=== PATIENT | male | born 1950 | race African-American/Black ===

== ENCOUNTER 2016-10-15 17:59 | Observation (INO) | payer OTHER ==
[~2016-10-15] VITALS: Ht 157.5 cm; Wt 97.0 kg
[~2016-10-15 17:59] MED LIST: ALBU1AER INH; AMLO5TAB22 PO; CHLO.12%30 SSP; CLOP75 PO; EZET10 PO; GLIP5 PO; IBUP800T23 PO; LISI40TA PO; METH750T2 PO; RANI150T PO; ZOLP10TA3 PO
[2016-10-15 18:00] VITALS: BP 183/92; PULSE 98; RESP 20; TEMP 98.5; O2SAT 98
--- NOTE | 2016-10-15 18:16 | PD ---
Physical Exam Time Seen by Provider: 18:12 Narrative 65yo M c/o abd pain x 1 week. Reports constipation. Denies N, V. Denies fever. Reports abdominal swelling and BLE edema. Type 2 Diabetic on metformin. Hx of MS. Patient seen in triage. Awaiting bed placement. VS reviewed. Data Data Last Documented VS Vital Signs Date Time Temp Pulse Resp B/P Pulse Ox O2 Delivery O2 Flow Rate FiO2 10/15/16 18:00 98.5 98 20 183/92 98 MDM Supervised Visit with LJ: Jocelyn Rojo October 15, 2016 18:16
[2016-10-15 19:22] LABS: AUTOMATED NEUTROPHIL # 5.6 TH/MM3 (1.8-7.7); BASOPHIL # 0.1 TH/MM3 (0-0.2); BASOPHIL % 0.6 % (0.0-2.0); EOSINOPHIL # 0.2 TH/MM3 (0-0.4); EOSINOPHIL % 1.9 % (0.0-4.0); HEMATOCRIT 42.9 % (39.0-51.0); HEMO FLAGS DIFF FINAL; LYMPH % 26.1 % (9.0-44.0); LYMPHOCYTE # 2.4 TH/MM3 (1.0-4.8); MEAN CELL VOLUME 90.5 FL (80.0-100.0); MEAN CORPUSCULAR HEMOGLOBIN 27.9 PG (27.0-34.0); MEAN CORPUSCULAR HGB CONC 30.9 % (32.0-36.0); MONO % 10.1 % (0.0-8.0); NEUT % 61.3 % (16.0-70.0); PLATELET COUNT 161 TH/MM3 (150-450); RED BLOOD COUNT 4.75 MIL/MM3 (4.50-5.90); RED CELL DISTRIBUTION WIDTH 14.5 % (11.6-17.2); WHITE BLOOD COUNT 9.1 TH/MM3 (4.0-11.0)
[2016-10-15 19:35] LABS: BLOOD, URINE TRACE (NEG); GLUCOSE,URINE NEG (NEG); HYALINE CAST, URINE 17 /lpf (RARE); KETONE, URINE NEG (NEG); MUCUS URINE FEW /lpf (OCC); NITRITE,URINE NEG (NEG); PH, URINE 5.5 (5.0-8.5); URINE COLOR YELLOW (YELLW/STRAW)
[2016-10-15 19:38] LABS: COMMENT (UR) CULT NOT INDICATED; CULTURE IF INDICATED CULT NOT INDICATED
[2016-10-15 19:44] LABS: ANION GAP 6 MEQ/L (5-15); AST (GOT) 45 U/L (15-37); BICARBONATE 33.2 MEQ/L (21.0-32.0); BLOOD UREA NITROGEN 17 MG/DL (7-18); CHLORIDE 103 MEQ/L (98-107); GLOMERULAR FILTRATION RATE 62 ML/MIN (>89); POTASSIUM 3.9 MEQ/L (3.5-5.1); SODIUM (NA) 142 MEQ/L (136-145)
[2016-10-15 19:47] LABS: ALKALINE PHOSPHATASE 53 U/L (45-117); ALT (GPT) 91 U/L (12-78); TOTAL BILIRUBIN ADULT 1.4 MG/DL (0.2-1.0)
--- NOTE | 2016-10-15 23:45 | PD ---
HPI Chief Complaint: Abdominal Pain Time Seen by Provider: 23:44 Travel History International Travel<30 days: No Contact w/Intl Traveler<30days: No Traveled to known affect area: No History of Present Illness HPI Patient 65-year-old male presents emergency department for evaluation of leg swelling abdominal distention and decreased bowel output. Patient states he has a history of myocardial infarction in the past but has never been diagnosed as CHF. Patient states that he has been afraid to eat anything since she's been having some mild abdominal cramping. Denies any fever denies any blood in the stool. Denies any leg pain. He does also endorse mild shortness of breath on review of systems. Denies any chest pain. Symptoms are moderate gradually worsening over the past month. PFSH Past Medical History Asthma: Yes Autoimmune Disease: No Heart Rhythm Problems: No Cancer: No Cardiovascular Problems: Yes (NE) High Cholesterol: No Chest Pain: No COPD: Yes Cerebrovascular Accident: Yes Diabetes: Yes Patient Takes Glucophage: Yes Diminished Hearing: No Endocrine: Yes Genitourinary: No Hypertension: Yes Immune Disorder: No Musculoskeletal: No Neurologic: Yes Psychiatric: No Reproductive: No Respiratory: Yes Migraines: No Myocardial Infarction: Yes Seizures: No Sickle Cell Disease: No Sleep Apnea: No Ulcer: Yes Past Surgical History Abdominal Surgery: Yes (HERNIA x2) Cardiac Surgery: No Ear Surgery: No Endocrine Surgery: No Eye Surgery: No Genitourinary Surgery: No Gynecologic Surgery: No Oral Surgery: No Thoracic Surgery: No Other Surgery: Yes (HERNIA REPAIR X 2) Social History Alcohol Use: No Tobacco Use: No Substance Use: No Allergies-Medications (Allergen,Severity, Reaction): Coded Allergies: Contrast Media (Verified Allergy, Severe, Anaphylaxis, 10/15/16) Iodine (Verified Allergy, Severe, RASH, 10/15/16) Shellfish (Unverified Allergy, Severe, Anaphylaxis, 10/15/16) *MDRO Multi-Drug Resistant Organism (Unverified Adverse Reaction, Unknown , 10/15/16) MRSA (facial wound) - 04/2014 Reported Meds & Prescriptions Reported Meds & Active Scripts Active Reported Ambien (Zolpidem Tartrate) 10 Mg Tab 10 Mg PO HS PRN Ranitidine (Ranitidine HCl) 150 Mg Cap 150 Mg PO BID Methocarbamol 750 Mg Tab 1,500 Mg PO TID Amlodipine (Amlodipine Besylate) 5 Mg Tab 5 Mg PO DAILY Proair Hfa 8.5 GM Inh (Albuterol Sulfate) 90 Mcg/Act Aer 2 Puff INH BID PRN 108 mcg/actuation Review of Systems Except as stated in HPI: all other systems reviewed are Neg Physical Exam Narrative GENERAL: Developed well-nourished, minimally tachypneic.] SKIN: Focused skin assessment warm/dry. HEAD: Atraumatic. Normocephalic. EYES: Pupils equal and round. scleral icterus. No injection or drainage. ENT: No nasal bleeding or discharge. Mucous membranes pink and moist. NECK: Trachea midline. No JVD. CARDIOVASCULAR: Regular rate and rhythm. No murmur appreciated. 2+ bilaterally equal pulses in all 4 tremors. RESPIRATORY: No accessory muscle use. Clear to auscultation. Breath sounds equal bilaterally. GASTROINTESTINAL: Abdomen soft, non-tender, nondistended. Hepatic and splenic margins not palpable. MUSCULOSKELETAL: No obvious deformities. No clubbing. No cyanosis. 2+ bilateral pitting edema from the distal femur distally.. NEUROLOGICAL: Awake and alert. No obvious cranial nerve deficits. Motor grossly within normal limits. Normal speech. PSYCHIATRIC: Appropriate mood and affect; insight and judgment normal. Data Data Last Documented VS Vital Signs Date Time Temp Pulse Resp B/P Pulse Ox O2 Delivery O2 Flow Rate FiO2 10/15/16 18:00 98.5 98 20 183/92 98 Orders Complete Blood Count With Diff (10/15/16 18:15) Comprehensive Metabolic Panel (10/15/16 18:15) Urinalysis - C+S If Indicated (10/15/16 18:15) Iv Access Insert/Monitor (10/15/16 18:15) Oxygen Administration (10/15/16 18:15) Oximetry (10/15/16 18:15) Lipase (10/15/16 18:15) Chest, Single Ap (10/15/16 ) Ct Abd/Pel W/O Iv Contrast (10/15/16 ) Electrocardiogram (10/15/16 ) Furosemide Inj (Lasix Inj) (10/16/16 01:45) Troponin I (10/16/16 02:21) Admit Order (Ed Use Only) (10/16/16 ) B-Type Natriuretic Peptide (10/16/16 02:23) Creatine Kinase (Cpk) (10/15/16 19:00) Troponin I (10/15/16 19:00) Creatine Kinase (Cpk) (10/16/16 02:30) Labs Laboratory Tests Test 10/15/16 19:00 White Blood Count 9.1 TH/MM3 Red Blood Count 4.75 MIL/MM3 Hemoglobin 13.3 GM/DL Hematocrit 42.9 % Mean Corpuscular Volume 90.5 FL Mean Corpuscular Hemoglobin 27.9 PG Mean Corpuscular Hemoglobin 30.9 % Concent Red Cell Distribution Width 14.5 % Platelet Count 161 TH/MM3 Mean Platelet Volume 10.1 FL Neutrophils (%) (Auto) 61.3 % Lymphocytes (%) (Auto) 26.1 % Monocytes (%) (Auto) 10.1 % Eosinophils (%) (Auto) 1.9 % Basophils (%) (Auto) 0.6 % Neutrophils # (Auto) 5.6 TH/MM3 Lymphocytes # (Auto) 2.4 TH/MM3 Monocytes # (Auto) 0.9 TH/MM3 Eosinophils # (Auto) 0.2 TH/MM3 Basophils # (Auto) 0.1 TH/MM3 CBC Comment DIFF FINAL Differential Comment Urine Color YELLOW Urine Turbidity CLEAR Urine pH 5.5 Urine Specific [place] 1.029 Urine Protein 100 mg/dL Urine Glucose (UA) NEG mg/dL Urine Ketones NEG mg/dL Urine Occult Blood TRACE Urine Nitrite NEG Urine Bilirubin NEG Urine Urobilinogen 2.0 MG/DL Urine Leukocyte Esterase NEG Urine RBC 2 /hpf Urine WBC 2 /hpf Urine Hyaline Casts 17 /lpf Urine Mucus FEW /lpf Microscopic Urinalysis Comment CULT NOT INDICATED Sodium Level 142 MEQ/L Potassium Level 3.9 MEQ/L Chloride Level 103 MEQ/L Carbon Dioxide Level 33.2 MEQ/L Anion Gap 6 MEQ/L Blood Urea Nitrogen 17 MG/DL Creatinine 1.39 MG/DL Estimat Glomerular Filtration 62 ML/MIN Rate Random Glucose 159 MG/DL Calcium Level 8.9 MG/DL Total Bilirubin 1.4 MG/DL Aspartate Amino Transf 45 U/L (AST/SGOT) Alanine Aminotransferase 91 U/L (ALT/SGPT) Alkaline Phosphatase 53 U/L Total Protein 7.2 GM/DL Albumin 3.4 GM/DL Lipase 176 U/L [facility] Medical Decision Making Medical Screen Exam Complete: Yes Emergency Medical Condition: Yes Interpretation(s) EKG shows normal sinus rhythm normal axis and normal R-wave progression. Nonspecific RSR prime pattern in 3 and aVF consistent with a nonspecific intraventricular conduction delay. No concerning ST T changes. This is a borderline EKG. Differential Diagnosis Liver disease, kidney disease. New onset CHF, ACS, AMI, Narrative Course Patient was roomed emergency department, his labs do show AST and ALT elevation predominantly ALT. Patient does have cardiomegaly on chest x-ray which is otherwise negative.: Last 24 hours Impressions Chest X-Ray 10/15/16 0000 Signed Impressions: Service Date/Time: September 23:45 - CONCLUSION: 1. No acute findings. Mild cardiomegaly. Juancarlos Laurent MD Abdomen/Pelvis CT 10/15/16 0000 Signed Impressions: Service Date/Time: Sunday, October 16, 2016 00:00 - CONCLUSION: 1. Small bilateral pleural effusions with minimal anasarca. No acute findings within the abdomen and pelvis. Juancarlos Laurent MD Results are consistent with a new onset CHF. Labs were drawn out at triage and a BNP and troponin were added. Patient was discussed with Dr. Peraza for admission and she is agreeable. Diagnosis Primary Impression: Anasarca Additional Impressions: CHF (congestive heart failure) Qualified Code: I50.9 - Congestive heart failure, unspecified congestive heart failure chronicity, unspecified congestive heart failure type Pleural effusion OLGA (acute kidney injury) Admitting Information Admitting Physician Requests: Observation Condition: Stable Haroldo Orourke MD October 15, 2016 23:45
[2016-10-15] MEDS ORDERED: METH750T PO (23:48)
[2016-10-15] MEDS ORDERED: AMBI10TA PO (23:48)
[2016-10-15] MEDS ORDERED: RANI150C PO (23:48)
[2016-10-15] MEDS ORDERED: AMLO5TAB2 PO (23:48)
[2016-10-15] MEDS ORDERED: ALBUAER3 INH (23:48)
[2016-10-16] VITALS (7 sets, daily range): BP systolic 135–166; BP diastolic 74–102; PULSE 85–101; RESP 14–20; TEMP 95.7–98.2; O2SAT 92–98
--- NOTE | 2016-10-16 00:12 | RADRPT ---
EXAM DATE/TIME: 10/15/2016 23:45 [facility] COMPARISON: No previous studies available for comparison. INDICATIONS : Shortness of breath. MEDICAL HISTORY : Hypertension. Chronic obstructive pulmonary disease. Myocardial infarction. Asthma. SURGICAL HISTORY : None. ENCOUNTER: Initial ACUITY: 1 day PAIN SCORE: 0/10 LOCATION: Bilateral chest FINDINGS: A single view of the chest demonstrates the lungs to be symmetrically aerated without evidence of mas s, infiltrate or effusion. The cardiomediastinal contours are unremarkable except mild cardiomegaly. Osseous structures are intact. CONCLUSION: 1. No acute findings. Mild cardiomegaly. Juancarlos Laurent MD on October 16, 2016 at 0:10 Board Certified Radiologist. This report was verified electronically.
--- NOTE | 2016-10-16 01:01 | RADRPT ---
EXAM DATE/TIME: 10/16/2016 00:00 [facility] COMPARISON: No previous studies available for comparison. INDICATIONS : Abdominal pain and constipation. ORAL CONTRAST: No oral contrast ingested. RADIATION DOSE: 10.36 CTDIvol (mGy) MEDICAL HISTORY : Ulcers. Hypertension. Myocardial infarction.Diabetes. COPD. SURGICAL HISTORY : Hernia repairs. ENCOUNTER: Initial ACUITY: 1 week PAIN SCALE: 6/10 LOCATION: All quadrants. TECHNIQUE: Volumetric scanning of the abdomen and pelvis was performed. Using automated exposure control and ad justment of the mA and/or kV according to patient size, radiation dose was kept as low as reasonably achievable to obtain optimal diagnostic quality images. FINDINGS: There are small bilateral pleural effusions. No significant basilar lung disease. Cardiomegaly. No acute findings in the liver, spleen, adrenals, kidneys or pancreas. No calcified gallstones or michelle iary ductal dilatation. There is no free fluid. No bowel obstruction. No adenopathy. Minimal anasarca. CONCLUSION: 1. Small bilateral pleural effusions with minimal anasarca. No acute findings within the abdomen and pelvis. Juancarlos Laurent MD on October 16, 2016 at 0:54 Board Certified Radiologist. This report was verified electronically.
[2016-10-16] MEDS ORDERED: FUROSEMIDE 40 MG/4 ML VIAL IV PUSH ONE (01:45)
[2016-10-16] MEDS ORDERED: NALOXONE HCL 0.4 MG/ML AMP IV PRN (02:30)
[2016-10-16] MEDS ORDERED: SODIUM CHLORIDE 0.9% FLUSH 10 ML FLUSH IV FLUSH PRN (02:30)
[2016-10-16 05:18] LABS: CREATINE KINASE 233 U/L (39-308)
--- NOTE | 2016-10-16 05:35 | HHI.HP ---
HPI Service [facility] Primary Care Physician Priscila Brandt MD Admission Diagnosis New Onset CHF Diagnoses: (1) CHF (congestive heart failure) (2) Anasarca (3) Pleural effusion (4) OLGA (acute kidney injury) Chief Complaint: peripheral edema and constipation Travel History International Travel<30 Days: No Contact w/Intl Traveler <30 Da: No Traveled to Known Affected Are: No History of Present Illness Written by Kelle Dumont, acting as scribe for Dr. López on 10/16/16 at 05:32. Mr. Triplett is a 65 year-old male with a history of type 2 diabetes mellitus, hypertension, TIA, and severe shellfish allergy requiring intubation who presented to the emergency room on 10/16/2016 complaining of leg swelling, abdominal distention, mild abdominal cramping, and diminished bowel output. The patient is seen in the ER. He states he came to the hospital because he couldn't "poop" for one week. He went to the pharmacist to get a laxative on . The pharmacist saw the patient's swelling in his legs and told him to call his doctor. He called his doctor and came to the ER. He also is complainin of abdominal distention, orthopnea, shortness of breath with exertion, and nausea with vomiting. Denies chest tightness or palpitations. PCP Dr. Brandt stopped his lasix about a month ago according to the patient. . Review of Systems Except as stated in HPI: all other systems reviewed are Neg Past Family Social History Past Medical History Type 2 diabetes mellitus Hypertension Asthma/COPD Myocardial infarction ROSA on CPAP Cerebral vascular accident CHF . Past Surgical History Hernia repair 2 . Reported Medications Reported Meds & Active Scripts Active Reported Ambien (Zolpidem Tartrate) 10 Mg Tab 10 Mg PO HS PRN Ranitidine (Ranitidine HCl) 150 Mg Cap 150 Mg PO BID Methocarbamol 750 Mg Tab 1,500 Mg PO TID Amlodipine (Amlodipine Besylate) 5 Mg Tab 5 Mg PO DAILY Proair Hfa 8.5 GM Inh (Albuterol Sulfate) 90 Mcg/Act Aer 2 Puff INH BID PRN 108 mcg/actuation . Allergies: Coded Allergies: Contrast Media (Verified Allergy, Severe, Anaphylaxis, 10/15/16) Iodine (Verified Allergy, Severe, RASH, 10/15/16) Shellfish (Unverified Allergy, Severe, Anaphylaxis, 10/15/16) *MDRO Multi-Drug Resistant Organism (Unverified Adverse Reaction, Unknown , 10/15/16) MRSA (facial wound) - 04/2014 Active Ordered Medications Current Medications Furosemide (Lasix Inj) 40 mg ONCE ONCE IV PUSH Last administered on 10/16/16t 01:48; Start 10/16/16 at 01:45; Stop 10/16/16 at 01:46; Status DC Sodium Chloride (NS Flush) 2 ml UNSCH PRN IV FLUSH FLUSH AFTER USING IV ACCESS ; Start 10/16/16 at 02:30 Sodium Chloride (NS Flush) 2 ml BID IV FLUSH ; Start 10/16/16 at 09:00 Naloxone HCl (Narcan Inj) 0.4 mg UNSCH PRN IV SEE LABEL COMMENTS; Start at 02:30 Furosemide (Lasix Inj) 40 mg BID@18 IV PUSH ; Start 10/16/16 at 09:00 . Family History Mother had hypertension; lived until age 100 Sister with throat cancer Brother with throat cancer Brother with brain aneurysm . Social History Tobacco: Alcohol: occasional beer Illicit Drugs: . Physical Exam Vital Signs Vital Signs Date Time Temp Pulse Resp B/P Pulse Ox O2 Delivery O2 Flow Rate FiO2 10/16/16 05:08 85 14 157/78 97 10/15/16 18:00 98.5 98 20 183/92 98 Laboratory Laboratory Tests Test 10/15/16 10/16/16 19:00 02:30 White Blood Count 9.1 Red Blood Count 4.75 Hemoglobin 13.3 Hematocrit 42.9 Mean Corpuscular Volume 90.5 Mean Corpuscular Hemoglobin 27.9 Mean Corpuscular Hemoglobin 30.9 Concent Red Cell Distribution Width 14.5 Platelet Count 161 Mean Platelet Volume 10.1 Neutrophils (%) (Auto) 61.3 Lymphocytes (%) (Auto) 26.1 Monocytes (%) (Auto) 10.1 Eosinophils (%) (Auto) 1.9 Basophils (%) (Auto) 0.6 Neutrophils # (Auto) 5.6 Lymphocytes # (Auto) 2.4 Monocytes # (Auto) 0.9 Eosinophils # (Auto) 0.2 Basophils # (Auto) 0.1 CBC Comment DIFF FINAL Differential Comment Urine Color YELLOW Urine Turbidity CLEAR Urine pH 5.5 Urine Specific [place] 1.029 Urine Protein 100 Urine Glucose (UA) NEG Urine Ketones NEG Urine Occult Blood TRACE Urine Nitrite NEG Urine Bilirubin NEG Urine Urobilinogen 2.0 Urine Leukocyte Esterase NEG Urine RBC 2 Urine WBC 2 Urine Hyaline Casts 17 Urine Mucus FEW Microscopic Urinalysis Comment CULT NOT INDICATED Sodium Level 142 Potassium Level 3.9 Chloride Level 103 Carbon Dioxide Level 33.2 Anion Gap 6 Blood Urea Nitrogen 17 Creatinine 1.39 Estimat Glomerular Filtration 62 Rate Random Glucose 159 Calcium Level 8.9 Total Bilirubin 1.4 Aspartate Amino Transf 45 (AST/SGOT) Alanine Aminotransferase 91 (ALT/SGPT) Alkaline Phosphatase 53 Total Creatine Kinase 233 236 Troponin I 0.04 0.06 Total Protein 7.2 Albumin 3.4 Lipase 176 B-Type Natriuretic Peptide 341 Result Diagram: 10/15/16 1900 10/15/16 1900 Imaging Last Impressions Chest X-Ray 10/15/16 0000 Signed Impressions: Service Date/Time: September 23:45 - CONCLUSION: 1. No acute findings. Mild cardiomegaly. Juancarlos Laurent MD Abdomen/Pelvis CT 10/15/16 0000 Signed Impressions: Service Date/Time: Sunday, October 16, 2016 00:00 - CONCLUSION: 1. Small bilateral pleural effusions with minimal anasarca. No acute findings within the abdomen and pelvis. Juancarlos Laurent MD . Assessment and Plan Assessment and Plan Mr. Triplett is a 65 year-old male with a history of type 2 diabetes mellitus, hypertension, TIA, and severe shellfish allergy requiring intubation who presented to the emergency room on 10/16/2016 complaining of leg swelling, abdominal distention, mild abdominal cramping, and diminished bowel output. New-onset congestive heart failure Anasarca Pleural effusion - BNP elevated at 341 - 2-D echocardiogram to assess cardiac structure and function - Lasix 40 mg IV by mouth twice a day - Continuous cardiac telemetry to monitor for cardiac arrhythmias - Strict I and Os every shift - Heart healthy diet - Serial EKGs and cardiac enzymes to rule out ACS Acute kidney injury - BUN 17, creatinine 1.39, estimated GFR 62 - significantly reduced renal function compared to prior labs - Repeat BMP in a.m. and follow trends in renal indices - Avoid nephrotoxins Poorly controlled hypertension - admitting blood pressure 183/92 DVT prophylaxis . Discussed Condition With ER physician, RN, and patient . Problem Qualifiers (1) CHF (congestive heart failure): Qualified Code: I50.9 - Congestive heart failure, unspecified congestive heart failure chronicity, unspecified congestive heart failure type Kelle Dumont October 16, 2016 05:35
--- NOTE | 2016-10-16 06:07 | HHI.HP ---
HPI Service [facility] Primary Care Physician Priscila Brandt MD Admission Diagnosis CHF exacerbation . Diagnoses: (1) CHF (congestive heart failure) (2) Anasarca (3) Pleural effusion (4) OLGA (acute kidney injury) Chief Complaint: Abdominal distention, constipation, and peripheral edema Travel History International Travel<30 Days: No Contact w/Intl Traveler <30 Da: No Traveled to Known Affected Are: No History of Present Illness Written by Kelle Dumont, acting as scribe for Dr. López on 10/16/16 at 05:32. Mr. Triplett is a 65 year-old male with a history of type 2 diabetes mellitus, hypertension, TIA, and severe shellfish allergy requiring intubation who presented to the emergency room on 10/16/2016 complaining of leg swelling, abdominal distention, mild abdominal cramping, and diminished bowel output. The patient is seen in the ER. He states he came to the hospital because he couldn't "poop" for one week. He went to the pharmacist to get a laxative on . The pharmacist saw the patient's swelling in his legs and told him to call his doctor. He called his doctor and came to the ER. He also is complaining of abdominal distention, orthopnea, shortness of breath with exertion, and nausea with vomiting. Denies chest tightness or palpitations. PCP Dr. Priscila Brandt stopped his lasix about a month ago according to the patient. The patient reports a history of CHF and says he sees continuous improvement consultant Dr. Neely on [facility] in [place]. He has had recent stress test and echo at his office. We will need to obtain records from his office. . Review of Systems Except as stated in HPI: all other systems reviewed are Neg Past Family Social History Past Medical History Type 2 diabetes mellitus Hypertension Asthma/COPD Myocardial infarction ROSA on CPAP Cerebral vascular accident CHF . Past Surgical History Hernia repair 2 . Reported Medications Reported Meds & Active Scripts Active Reported Ambien (Zolpidem Tartrate) 10 Mg Tab 10 Mg PO HS PRN Ranitidine (Ranitidine HCl) 150 Mg Cap 150 Mg PO BID Methocarbamol 750 Mg Tab 1,500 Mg PO TID Amlodipine (Amlodipine Besylate) 5 Mg Tab 5 Mg PO DAILY Proair Hfa 8.5 GM Inh (Albuterol Sulfate) 90 Mcg/Act Aer 2 Puff INH BID PRN 108 mcg/actuation . Allergies: Coded Allergies: Contrast Media (Verified Allergy, Severe, Anaphylaxis, 10/15/16) Iodine (Verified Allergy, Severe, RASH, 10/15/16) Shellfish (Unverified Allergy, Severe, Anaphylaxis, 10/15/16) *MDRO Multi-Drug Resistant Organism (Unverified Adverse Reaction, Unknown , 10/15/16) MRSA (facial wound) - 04/2014 Active Ordered Medications Current Medications Furosemide (Lasix Inj) 40 mg ONCE ONCE IV PUSH Last administered on 10/16/16t 01:48; Start 10/16/16 at 01:45; Stop 10/16/16 at 01:46; Status DC Sodium Chloride (NS Flush) 2 ml UNSCH PRN IV FLUSH FLUSH AFTER USING IV ACCESS ; Start 10/16/16 at 02:30 Sodium Chloride (NS Flush) 2 ml BID IV FLUSH ; Start 10/16/16 at 09:00 Naloxone HCl (Narcan Inj) 0.4 mg UNSCH PRN IV SEE LABEL COMMENTS; Start at 02:30 Furosemide (Lasix Inj) 40 mg BID@,18 IV PUSH ; Start 10/16/16 at 09:00 . Family History Mother had hypertension; lived until age 100 Sister with throat cancer Brother with throat cancer Brother with brain aneurysm . Social History Tobacco: Alcohol: occasional beer Illicit Drugs: . Physical Exam Vital Signs Vital Signs Date Time Temp Pulse Resp B/P Pulse Ox O2 Delivery O2 Flow Rate FiO2 10/16/16 05:08 85 14 157/78 97 10/15/16 18:00 98.5 98 20 183/92 98 Physical Exam GENERAL: This is an older male patient who appears chronically ill in no apparent distress. SKIN: No rashes, ecchymoses or lesions. Cool and dry. HEAD: Atraumatic. Normocephalic. EYES: No scleral icterus. No injection or drainage. ENT: Nose without bleeding, purulent drainage. NECK: Trachea midline. No JVD or lymphadenopathy. CARDIOVASCULAR: Regular rate and rhythm without murmurs, gallops, or rubs. 3+ thighs down to feet. RESPIRATORY: Breath sounds equal bilaterally. No wheezes, rhonchi. Bibasilar crepitations auscultated. GASTROINTESTINAL: Bowel sounds normal. Abdomen distended, nontender No guarding. MUSCULOSKELETAL: Extremities without clubbing, cyanosis. No calf tenderness. NEUROLOGICAL: Awake and alert. Motor and sensory grossly within normal limits. Normal speech. . Laboratory Laboratory Tests Test 10/15/16 10/16/16 19:00 02:30 White Blood Count 9.1 Red Blood Count 4.75 Hemoglobin 13.3 Hematocrit 42.9 Mean Corpuscular Volume 90.5 Mean Corpuscular Hemoglobin 27.9 Mean Corpuscular Hemoglobin 30.9 Concent Red Cell Distribution Width 14.5 Platelet Count 161 Mean Platelet Volume 10.1 Neutrophils (%) (Auto) 61.3 Lymphocytes (%) (Auto) 26.1 Monocytes (%) (Auto) 10.1 Eosinophils (%) (Auto) 1.9 Basophils (%) (Auto) 0.6 Neutrophils # (Auto) 5.6 Lymphocytes # (Auto) 2.4 Monocytes # (Auto) 0.9 Eosinophils # (Auto) 0.2 Basophils # (Auto) 0.1 CBC Comment DIFF FINAL Differential Comment Urine Color YELLOW Urine Turbidity CLEAR Urine pH 5.5 Urine Specific [place] 1.029 Urine Protein 100 Urine Glucose (UA) NEG Urine Ketones NEG Urine Occult Blood TRACE Urine Nitrite NEG Urine Bilirubin NEG Urine Urobilinogen 2.0 Urine Leukocyte Esterase NEG Urine RBC 2 Urine WBC 2 Urine Hyaline Casts 17 Urine Mucus FEW Microscopic Urinalysis Comment CULT NOT INDICATED Sodium Level 142 Potassium Level 3.9 Chloride Level 103 Carbon Dioxide Level 33.2 Anion Gap 6 Blood Urea Nitrogen 17 Creatinine 1.39 Estimat Glomerular Filtration 62 Rate Random Glucose 159 Calcium Level 8.9 Total Bilirubin 1.4 Aspartate Amino Transf 45 (AST/SGOT) Alanine Aminotransferase 91 (ALT/SGPT) Alkaline Phosphatase 53 Total Creatine Kinase 233 236 Troponin I 0.04 0.06 Total Protein 7.2 Albumin 3.4 Lipase 176 B-Type Natriuretic Peptide 341 Result Diagram: 10/15/16 1900 10/15/16 1900 Imaging Last Impressions Chest X-Ray 10/15/16 0000 Signed Impressions: Service Date/Time: September 23:45 - CONCLUSION: 1. No acute findings. Mild cardiomegaly. Juancarlos Laurent MD Abdomen/Pelvis CT 10/15/16 0000 Signed Impressions: Service Date/Time: Sunday, October 16, 2016 00:00 - CONCLUSION: 1. Small bilateral pleural effusions with minimal anasarca. No acute findings within the abdomen and pelvis. Juancarlos Laurent MD . Assessment and Plan Problem List: (1) CHF (congestive heart failure) ICD Code: I50.9 Status: Acute (2) Anasarca ICD Code: R60.1 Status: Acute (3) Pleural effusion ICD Code: J90 Status: Acute (4) OLGA (acute kidney injury) ICD Code: N17.9 Status: Acute Assessment and Plan Mr. Triplett is a 65 year-old male with a history of type 2 diabetes mellitus, hypertension, TIA, and severe shellfish allergy requiring intubation who presented to the emergency room on 10/16/2016 complaining of leg swelling, abdominal distention, mild abdominal cramping, and diminished bowel output. Congestive heart failure exacerbation Anasarca Pleural effusion - BNP elevated at 341 - 2-D echocardiogram to assess cardiac structure and function - Lasix 40 mg IV by mouth twice a day - Continuous cardiac telemetry to monitor for cardiac arrhythmias - Strict I and Os every shift - Heart healthy diet - Serial EKGs and cardiac enzymes to rule out ACS Acute kidney injury - BUN 17, creatinine 1.39, estimated GFR 62 - significantly reduced renal function compared to prior labs - Repeat BMP in a.m. and follow trends in renal indices - Avoid nephrotoxins Poorly controlled hypertension - admitting blood pressure 183/92 - recheck 157/78 - continue home Amlodipine - monitor blood pressure readings and adjust treatment if needed DVT prophylaxis - Lovenox 40 mg subq q24 hours This note was transcribed by [email or web address] [Kelle Dumont]. I, Dr. Alisha López personally performed the history, physical exam, and medical decision making; and confirmed the accuracy of the information in the transcribed note. Authenticated by Dr. Alisha López on 10/16/16 at 05:32. Discussed Condition With ER physician, patient, patient's RN Problem Qualifiers (1) CHF (congestive heart failure): Qualified Code: I50.9 - Congestive heart failure, unspecified congestive heart failure chronicity, unspecified congestive heart failure type Kelle Dumont October 16, 2016 06:07 Alisha López MD Nov 09, 2016 12:53
[2016-10-16] MEDS ORDERED: NON-FORMULARY DRUG (Ranitidine 150 MG) PO SCH (09:00)
[2016-10-16] MEDS: FAMOTIDINE 20 MG TAB PO SCH ×2 (09:34→20:07)
[2016-10-16] MEDS: amLODIPine BESYLATE 5 MG TAB PO SCH (09:35)
[2016-10-16] MEDS: ENOXAPARIN SODIUM 40 MG/0.4 ML SYRINGE SQ SCH (09:36)
[2016-10-16] MEDS: FUROSEMIDE 40 MG/4 ML VIAL IV PUSH SCH ×2 (09:36→18:59)
[2016-10-16] MEDS: SODIUM CHLORIDE 0.9% FLUSH 10 ML FLUSH IV FLUSH SCH ×2 (09:36→20:08)
--- NOTE | 2016-10-16 10:32 | EC ---
Study Study Date:10/16/2016 STUDY CONCLUSIONS SUMMARY - Left ventricle: The cavity size was dilated. Wall thickness was normal. Systolic function was normal. The estimated ejection fraction was 15%. Diffuse hypokinesis. Hypokinesis of the entire myocardium. Abnormal relaxation with normal filling pressures. - Aortic valve: Valve area: 1.56cm^2 (Vmax). - Mitral valve: Mild regurgitation. - Tricuspid valve: Mild regurgitation. - Pulmonary arteries: PA peak pressure: 43mm Hg (S). If LV function is below 40, please consider prescribing an ACEI or ARB or document rationale for non-use. PROCEDURE DATA STUDY STATUS: Elective. Procedure: Transthoracic echocardiography. Image quality was good. Scanning was performed from the parasternal, apical, and subcostal acoustic windows. Study completion: The patient tolerated the procedure well. Transthoracic echocardiography. M-mode, complete 2D, complete spectral Doppler, and color Doppler. Height: Height: 62in. Weight: Weight: 212.6lb. Body mass index: BMI: 39kg/m^2. Body surface area: BSA: 1.96m^2. Patient status: Inpatient. CARDIAC ANATOMY LEFT VENTRICLE: The cavity size was dilated. Wall thickness was normal. Systolic function was normal. The estimated ejection fraction was 15%. Diffuse hypokinesis. Regional wall motion abnormalities: Hypokinesis of the entire myocardium. Abnormal relaxation with normal filling pressures. AORTIC VALVE: Trileaflet; normal thickness leaflets. Doppler: Transvalvular velocity was within the normal range. There was no stenosis. No regurgitation. Valve area: 1.56cm^2 (Vmax). Indexed valve area: 0.8cm^2/m^2 (Vmax). AORTA: Aortic root: The aortic root was normal in size. MITRAL VALVE: Structurally normal valve. Doppler: Transvalvular velocity was within the normal range. There was no evidence for stenosis. Mild regurgitation. Peak gradient: 5mm Hg (D). LEFT ATRIUM: The atrium was normal in size. RIGHT VENTRICLE: The cavity size was normal. Wall thickness was normal. PULMONIC VALVE: Doppler: Transvalvular velocity was within the normal range. There was no evidence for stenosis. No regurgitation. TRICUSPID VALVE: Structurally normal valve. Doppler: Transvalvular velocity was within the normal range. Mild regurgitation. PULMONARY ARTERY: The main pulmonary artery was normal-sized. Systolic pressure was within the normal range. RIGHT ATRIUM: The atrium was normal in size. PERICARDIUM: There was no pericardial effusion. SYSTEMIC VEINS: Inferior vena cava: The vessel was normal in size. Patient weight: 212.6lb _Ejection fraction:_ 65-75% _Fractional shortening:_ 32% up to 5Kg 5-11.5Kg 11.6-22.9Kg 23-45Kg 45-57Kg Aortic Root 7-13 <17 13-22 17-27 17-27 LA diam 6-13 <23 24-38 33-47 37-40 RVID 10-17 7-15 7-15 7-18 8-17 LVIDd 12-22 <32 24-38 33-47 37-40 LVPW 2-4 3-6 5-7 6-8 7-8 IVS 2-4 3-6 5-7 6-8 7-8 BASIC MEASUREMENTS ADULT NORMAL Left ventricle LV internal dimension, ED, chordal *55.6 mm 43-52 level, PLAX LV internal dimension, ES, chordal *52.8 mm 23-38 level, PLAX Fractional shortening, chordal level, *5 % >29 PLAX LV posterior wall thickness, ED 10.6 mm IVS/LVPW ratio, ED 0.99 <1.3 Ventricular septum Septal thickness, ED 10.5 mm Aortic valve Leaflet separation 19 mm 15-26 BASIC MEASUREMENTS ADULT NORMAL Left ventricle LV internal dimension, ED 55.2 mm 37-56 LV internal dimension, ES 53.3 mm Fractional shortening *3 % 29-45 LV posterior wall, ED *11.6 mm 6-11 Septal/posterior wall ratio, ED 0.88 Relative wall thickness, ED 0.42 <0.45 Volume, ED, Teichholz 149 ml Volume, ES, Teichholz 137 ml Ejection fraction, Teichholz *8.05 % 64-83 Stroke volume, Teichholz 12 ml Volume index, ED, Teichholz 76 ml/m^2 Volume index, ES, Teichholz 70 ml/m^2 Stroke index, Teichholz 6.1 ml/m^2 Wall mass 240.5 g Wall mass index 122.7 g/m^2 Mass/height 1.53 g/cm Ventricular septum Septal thickness, ED 10.2 mm Aortic valve Leaflet separation 19 mm 15-26 Aorta Root diameter, ED 29 mm 20-37 Left atrium Anterior-posterior dimension, ES 39 mm 19-40 Anterior-posterior dimension index, ES 1.99 cm/m^2 <2.2 LA/aortic root ratio 1.34 DOPPLER MEASUREMENTS ADULT NORMAL Main pulmonary artery Pressure, S *43 mm Hg =30 Aortic valve Peak velocity, S 113 cm/s Valve area, Vmax 1.56 cm^2 Valve area index, Vmax 0.8 cm^2/m^2 Mitral valve Peak E-wave velocity 116 cm/s Peak A-wave velocity 44.4 cm/s Deceleration time *130 ms 150-230 Peak gradient, D 5 mm Hg Peak E/A ratio 2.6 Maximal regurgitant velocity 337 cm/s Tricuspid valve Regurgitant peak velocity 286 cm/s Peak RV-RA gradient, S 33 mm Hg Maximal regurgitant velocity 286 cm/s Systemic veins Estimated CVP 10 mm Hg Right ventricle RV pressure, S *43 mm Hg <30 LEGEND: Mean values are shown as u=mean value. Asterisk (*) naqvi values outside specified normal range. Prepared and signed by Tank Lawler [id number]
[2016-10-16] MEDS ORDERED: MAGNESIUM HYDROXIDE SUSP 30 ML CUP PO PRN (11:00)
[2016-10-16] MEDS: DOCUSATE SODIUM 50 MG/SENNA 8.6 MG TAB PO SCH ×2 (12:36→20:08)
[2016-10-16] MEDS: LISINOPRIL 5 MG TAB PO SCH (12:36)
[2016-10-16] MEDS: CARVEDILOL 3.125 MG TAB PO SCH ×2 (12:36→20:07)
[2016-10-16] MEDS: ASPIRIN EC 81 MG TABEC PO SCH (12:36)
[2016-10-16] MEDS ORDERED: GLIP10TA6 PO (12:47)
--- NOTE | 2016-10-16 12:48 | MB ---
cc: BENJY HERNANDEZ DATE OF CONSULTATION DATE OF 1950 REASON FOR CONSULTATION Heart failure HISTORY OF PRESENT ILLNESS 65-year-old male with a past medical history significant for known coronary artery disease status post several TX's in the past, severe LV systolic dysfunction and hypertension. He now presents to the hospital with complaints of abdominal pain and constipation. Upon further questioning, it was noted that the patient has some mild pedal edema. Echocardiogram order showed a low decreased LV systolic function. Cardiology has been consulted for further management and evaluation. Of note, he reports that he is being followed by Dr. Neely and they have been talking about putting in an AICD. Regarding his cardiomyopathy, he reports this is known to him. He has had several heart attacks in the past. No stents or open heart surgeries nonetheless. His last stress test was done in 2012 it showed fixed defect no reversible ischemia. Here, he has no cardiovascular complaints. He denies any chest pain, shortness of breath, PND, syncope, presyncope, or palpitations. He mostly complains of indigestion and constipation. He reports being compliant with medications. He had a run of asymptomatic nonsustained VT on telemetry. REVIEW OF SYSTEMS Negative except for what is mentioned in the HPI. PAST MEDICAL HISTORY 1. CAD status post TX 2. Hypertension 3. Obesity 4. COPD PAST SURGICAL HISTORY Hernia repair. SOCIAL HISTORY Denies alcohol, tobacco or illicit drug use. ALLERGIES CONTRAST MEDIA, IODINE, SULFATE. HOME MEDICATIONS 1. Albuterol p.r.n. 2. Norvasc 5 mg p.o. daily 3. Methocarbamol 350 mg p.o. t.i.d. 4. Ranitidine 150 mg p.o. b.i.d. 5. Ambient 10 mg p.o. daily PHYSICAL EXAM VITAL SIGNS: Temperature 95.7, heart rate 99, blood pressure 140/82, O2 sat 97 % room air. GENERAL: He is awake, alert and oriented times three sitting in a chair in no acute distress. NECK: No JVD, no carotid bruits. HEART: Regular rate and rhythm. No murmurs, rubs or gallops appreciated. LUNGS: Decreased expiratory effort bilaterally, however, no wheezes, rhonchi or rales. ABDOMEN: Obese. Positive bowel sounds, soft, nontender, nondistended. EXTREMITIES: There is +1 edema and pulses throughout. DATA CBC hemoglobin 13, hematocrit 42, platelet count of 161. Electrolytes sodium 142, potassium 3.9, BUN 17, creatinine 1.3, troponin 0.04 and 0.06, BNP 341, lipase 176, AST 45 and ALT 91. Urinalysis shows protein. EKG sinus rhythm with left atrial enlargement. Chest x-ray, no acute cardiopulmonary process. Abdominal CT shows small bilateral pleural effusions with minimal anasarca. Echocardiogram shows severe LV systolic dysfunction with estimated ejection fraction of 15% as well as diastolic dysfunction. No significant valvulopathies. ASSESSMENT AND PLAN 65 year-old male who presented with abdominal pain, constipation found to be in mild heart failure exacerbation. He remains fairly hemodynamically stable. His echocardiogram reveals severe LV systolic function with an EF of 15% with diffuse hypokinesis throughout the entire myocardium, however per patient this is an old finding in the setting of multiple heart attacks. EKG unremarkable as well as troponin. There is a mention that the patient had a recent stress test , however, the last stress test that I and see 2012, we should try to talk Dr. Neely to see if there is another more recent stress test. Regarding his mild heart failure exacerbation, I agree with mild IV diuresis as well as optimization of his medical therapy for CAD. The patient should be started on aspirin 81 mg p.o. daily, Coreg 3.125 mg p.o. b.i.d. and Lisinopril 5mg PO daily if no contraindications. Lipid profile should be ordered. U/A shows proteinuria, his random glucose is also elevated. I wonder whether the patient has diabetes, get Hemoglobin A1c. External wearable defibrillator Life Vest upon discharge and follow up with Dr. Neely. Recommendations: 1. Strict I and O 2. Daily weight 3. Low salt diet 4. Cont IV diuresis 5. Start Coreg 3.125mg PO BID 6. Start Aspirin 81mg PO daily 7. Start Lisinopril 5mg PO daily 8. Check Hemoglobin A1C 9. External wearable defibrillator upon discharge 10. Follow up with Dr. Neely Thank you for the opportunity to take part in the care of this patient. Further therapy to be determined. MD NISHANT López/CURRY /11:58 AM /12:29 PM MTDTess
[2016-10-16] MEDS ORDERED: HYDR-3583 PO (12:49)
[2016-10-16 13:17] LABS: BICARBONATE 32.4 MEQ/L (21.0-32.0); MAGNESIUM 1.9 MG/DL (1.5-2.5); POTASSIUM 3.7 MEQ/L (3.5-5.1)
[2016-10-16] MEDS ORDERED: DEXTROSE 50% IN WATER 50 ML VIAL(D50) IV PRN (16:00)
[2016-10-16] MEDS ORDERED: GLUCAGON 1 MG/ML VIAL OTHER PRN (16:00)
[2016-10-16] MEDS: INSULIN ASPART SUPPLEMENTAL SCALE SQ SCH ×2 (17:03→20:07)
[2016-10-16 17:13] LABS: HEMOGLOBIN A1a 0.8 %; HEMOGLOBIN A1b 0.7 %; HEMOGLOBIN Ao 83.8 %; HEMOGLOBIN F 1.5 %; HEMOGLOBIN LA1C 1.6 %; HEMOGLOBIN P3 3.3 %
--- NOTE | 2016-10-16 20:55 | EKG ---
Date Performed: 10/16/2016 Time Performed: 08:44:43 PTAGE: 65 years EKG: Sinus rhythm POSSIBLE LEFT ATRIAL ENLARGEMENT BORDERLINE ECG PREVIOUS TRACING : 10/16/2016 00.48 Compared to prior tracing no significant change DOCTOR: Jamel Max Interpretating Date/Time 10/16/2016 20:54:20
--- NOTE | 2016-10-16 21:11 | EKG ---
Date Performed: 10/16/2016 Time Performed: 00:48:40 PTAGE: 65 years EKG: Sinus rhythm POSSIBLE LEFT ATRIAL ENLARGEMENT NONSPECIFIC T-WAVE ABNORMALITY BORDERLINE ECG PREVIOUS TRACING : 04/07/2014 15.05 Compared to the previous tracing SVT is no longer present DOCTOR: Jamel Max Interpretating Date/Time 10/16/2016 21:09:55
[2016-10-17 03:43] VITALS: PULSE 95
[2016-10-17 04:36] VITALS: BP 153/84; PULSE 93; RESP 20; TEMP 98.5; O2SAT 93
[2016-10-17] MEDS: INSULIN ASPART SUPPLEMENTAL SCALE SQ SCH (06:15)
[2016-10-17 07:48] VITALS: BP_SYST 117; BP_SYST 142; BP_DIAS 69; BP_DIAS 73; PULSE 66; PULSE 94; RESP 19; TEMP 95.6; TEMP 96.5; O2SAT 91; O2SAT 94
[2016-10-17] MEDS ORDERED: CALCIUM CARBONATE 500 MG CHEWABLE TAB CHEW PRN (08:15)
[2016-10-17] MEDS ORDERED: ACETAMINOPHEN 325 MG TAB PO PRN (08:15)
[2016-10-17] MEDS ORDERED: ONDANSETRON HCL 4 MG/2 ML VIAL IV PRN (08:15)
[2016-10-17] MEDS: FAMOTIDINE 20 MG TAB PO SCH (08:41)
[2016-10-17] MEDS: CARVEDILOL 3.125 MG TAB PO SCH (08:41)
[2016-10-17] MEDS: ASPIRIN EC 81 MG TABEC PO SCH (08:41)
[2016-10-17] MEDS: amLODIPine BESYLATE 5 MG TAB PO SCH (08:41)
[2016-10-17] MEDS: DOCUSATE SODIUM 50 MG/SENNA 8.6 MG TAB PO SCH (08:41)
[2016-10-17] MEDS: SODIUM CHLORIDE 0.9% FLUSH 10 ML FLUSH IV FLUSH SCH (08:42)
[2016-10-17] MEDS: FUROSEMIDE 40 MG/4 ML VIAL IV PUSH SCH (08:42)
[2016-10-17] MEDS: LISINOPRIL 5 MG TAB PO SCH (08:44)
[2016-10-17] MEDS: ENOXAPARIN SODIUM 40 MG/0.4 ML SYRINGE SQ SCH (08:44)
[2016-10-17] MEDS ORDERED: MUPIROCIN 2% OINT 1 APPLIC/GM SYR EACH NARE SCH (09:00)
--- NOTE | 2016-10-17 09:16 | PD.CARD.PN ---
Subjective Subjective Remarks Doing well No cardiovascular complaint Objective Medications Current Medications Medications (Trade) Dose Ordered Sig/Anshul Route Start Time Stop Time Status Last Admin (NS Flush) 2 ml UNSCH PRN IV FLUSH 10/16/16 02:30 (NS Flush) 2 ml BID IV FLUSH 10/16/16 09:00 10/17/16 08:42 (Narcan Inj) 0.4 mg UNSCH PRN IV 10/16/16 02:30 (Lasix Inj) 40 mg BID@,18 IV PUSH 10/16/16 09:00 10/17/16 08:42 (Lovenox Inj) 40 mg Q24H SQ 10/16/16 09:00 10/17/16 08:44 (Norvasc) 5 mg DAILY PO 10/16/16 09:00 10/17/16 08:41 (Pepcid) 10 mg BID PO 10/16/16 09:00 10/17/16 08:41 (Roxicodone) 5 mg Q6H PRN PO 10/16/16 10:45 10/16/16 10:53 (Nu-Colace) 2 tab BID PO 10/16/16 11:00 10/17/16 08:41 (Milk Of Magnesia Liq) 30 ml Q6H PRN PO 10/16/16 11:00 10/16/16 14:49 (Ecotrin Ec) 81 mg DAILY PO 10/16/16 13:00 10/17/16 08:41 (Coreg) 3.125 mg Q12HR PO 10/16/16 13:00 10/17/16 08:41 (Prinivil) 5 mg DAILY PO 10/16/16 13:00 10/17/16 08:44 (D50w (Vial) Inj) 50 ml UNSCH PRN IV 10/16/16 16:00 (Glucagon Inj) 1 mg UNSCH PRN OTHER 10/16/16 16:00 (Tylenol) 650 mg Q4H PRN PO 10/17/16 08:15 (Zofran Inj) 4 mg Q6H PRN IV 10/17/16 08:15 (Tums Chew) 1,000 mg TID PRN CHEW 10/17/16 08:15 (Bactroban Nasal 2% Oint) 1 applic BID EACH NARE 10/17/16 09:00 10/24/16 08:59 Vital Signs / I&O Vital Signs Date Time Temp Pulse Resp B/P Pulse Ox O2 Delivery O2 Flow Rate FiO2 10/17/16 07:48 96.5 94 19 117/73 94 10/17/16 04:36 98.5 93 20 153/84 93 10/17/16 03:43 95 10/16/16 23:52 98.2 90 16 137/83 92 10/16/16 19:12 98.0 94 20 135/74 93 10/16/16 15:29 97.2 98 18 160/102 95 10/16/16 11:16 95.7 101 17 140/82 97 I/O 10/16/16 10/16/16 10/16/16 10/17/16 10/17/16 10/17/16 07:00 15:00 23:00 07:00 15:00 23:00 Intake Total 480 ml 480 ml 340 ml Output Total 1950 ml 500 ml 600 ml 875 ml Balance -1950 ml -20 ml -120 ml -535 ml Intake Oral 480 ml 480 ml 340 ml Output Urine Total 1950 ml 500 ml 600 ml 875 ml # Voids 4 Physical Exam GENERAL: Well-nourished, well-developed patient. SKIN: Warm and dry. HEAD: Normocephalic. EYES: No scleral icterus. No injection or drainage. NECK: Supple, trachea midline. No JVD or lymphadenopathy. CARDIOVASCULAR: Regular rate and rhythm without murmurs, gallops, or rubs. RESPIRATORY: Breath sounds equal bilaterally. No accessory muscle use. GASTROINTESTINAL: Abdomen soft, non-tender, nondistended. EXTREMITIES: No cyanosis, or edema. NEUROLOGICAL: Awake, alert, and oriented x 3. Non-focal. Laboratory Laboratory Tests Test 10/16/16 10/16/16 09:45 11:57 Nasal Screen MRSA (PCR) MRSA DETECTED Sodium Level 138 MEQ/L Potassium Level 3.7 MEQ/L Chloride Level 98 MEQ/L Carbon Dioxide Level 32.4 MEQ/L Anion Gap 8 MEQ/L Blood Urea Nitrogen 16 MG/DL Creatinine 1.24 MG/DL Estimat Glomerular Filtration 71 ML/MIN Rate Random Glucose 207 MG/DL Calcium Level 8.9 MG/DL Magnesium Level 1.9 MG/DL Total Creatine Kinase 253 U/L Troponin I 0.04 NG/ML Imaging Last Impressions Chest X-Ray 5/18/17 0000 Signed Impressions: Service Date/Time: September 23:45 - CONCLUSION: 1. No acute findings. Mild cardiomegaly. Juancarlos Laurent MD Abdomen/Pelvis CT 10/15/16 0000 Signed Impressions: Service Date/Time: Sunday, October 16, 2016 00:00 - CONCLUSION: 1. Small bilateral pleural effusions with minimal anasarca. No acute findings within the abdomen and pelvis. Juancarlos Laurent MD Assessment and Plan Problem List: (1) History of coronary artery disease Assessment and Plan: No CV complaints. Reports feeling better after having bowel movement Cont BB, ACEi, ASA External Wearable Defibrillator Encourage ambulation and diet Stable from CV standpoint to d/c home F/u with Dr. Neely upon discharge (2) CHF (congestive heart failure) Problem Qualifiers (1) CHF (congestive heart failure): Qualified Code: I50.9 - Congestive heart failure, unspecified congestive heart failure chronicity, unspecified congestive heart failure type Tank Lawler MD October 17, 2016 09:16
[2016-10-17] MEDS ORDERED: INSULIN ASPART SUPPLEMENTAL SCALE SQ SCH (11:00)
[2016-10-17 11:39] VITALS: BP 131/77; PULSE 91; RESP 19; TEMP 96; O2SAT 94
[2016-10-17] MEDS ORDERED: LISI-519 PO (13:59)
[2016-10-17] MEDS ORDERED: CARV3.125 PO (13:59)
[2016-10-17] MEDS ORDERED: ASPI81TA11 PO (13:59)
[2016-10-17] MEDS ORDERED: MIRA33504 PO (13:59)
--- NOTE | 2016-10-17 14:01 | HHI.DCPOC ---
Discharge Care Plan Diagnosis: (1) Sleep apnea (2) CHF (congestive heart failure) (3) Type 2 diabetes mellitus (4) Hypertension (5) Constipation Goals to Promote Your Health * To prevent worsening of your condition and complications * To maintain your health at the optimal level Directions to Meet Your Goals Take your medications as prescribed Follow your dietary instruction Follow activity as directed Keep your appointments as scheduled Take your immunizations and boosters as scheduled If your symptoms worsen call your PCP, if no PCP go to Urgent Care Center or Emergency Room Smoking is Dangerous to Your Health. Avoid second hand smoke Call the 24-hour hour crisis hotline for domestic abuse at Yenny Rausch PA-C October 17, 2016 2:01 pm
[2016-10-17] MEDS ORDERED: FURO40TA PO (14:16)
--- NOTE | 2016-10-17 14:26 | HHI.PR ---
Subjective Remarks Follow up for CHF exacerbation, constipation. The patient reports finally having a bowel movement last night and this morning after going 1 week without BM. He denies any abdominal pain, nausea, vomiting. He is tolerating oral intake. He also reports his breathing is improved, denies any significant shortness of breath. Lower extremity edema also improved. He has been fitted for his Lifevest. He wants to go home. He has been cleared by cardiology. He has an appointment with his PCP this week and plans to see his producer Dr. Neely after discharge. Objective Vitals Vital Signs Date Time Temp Pulse Resp B/P Pulse Ox O2 Delivery O2 Flow Rate FiO2 10/17/16 11:39 96.0 91 19 131/77 94 10/17/16 07:48 96.5 94 19 117/73 94 10/17/16 04:36 98.5 93 20 153/84 93 10/17/16 03:43 95 10/16/16 23:52 98.2 90 16 137/83 92 10/16/16 19:12 98.0 94 20 135/74 93 10/16/16 15:29 97.2 98 18 160/102 95 I/O 10/16/16 10/16/16 10/16/16 10/17/16 10/17/16 10/17/16 07:00 15:00 23:00 07:00 15:00 23:00 Intake Total 480 ml 480 ml 340 ml Output Total 1950 ml 500 ml 600 ml 875 ml Balance -1950 ml -20 ml -120 ml -535 ml Intake Oral 480 ml 480 ml 340 ml Output Urine Total 1950 ml 500 ml 600 ml 875 ml # Voids 4 Result Diagram: 10/15/16 1900 10/16/16 1157 Imaging Last Impressions Chest X-Ray 10/15/16 0000 Signed Impressions: Service Date/Time: September 23:45 - CONCLUSION: 1. No acute findings. Mild cardiomegaly. Juancarlos Laurent MD Abdomen/Pelvis CT 10/15/16 0000 Signed Impressions: Service Date/Time: Sunday, October 16, 2016 00:00 - CONCLUSION: 1. Small bilateral pleural effusions with minimal anasarca. No acute findings within the abdomen and pelvis. Juancarlos Laurent MD Objective Remarks GENERAL: Well-nourished, well-developed pleasant male patient in NAD. SKIN: Warm and dry. No rash. HEENT: Normocephalic. Atraumatic.Pupils equal and round. Mucous membranes pink and moist. NECK: Supple. Trachea midline. CARDIOVASCULAR: Regular rate and rhythm. S1, S2 noted. No murmur appreciated. LifeVest in place. RESPIRATORY: No accessory muscle use. Clear to auscultation. Breath sounds equal bilaterally. GASTROINTESTINAL: Abdomen soft, non-tender, nondistended. Normoactive bowel sounds x4. MUSCULOSKELETAL: No obvious deformities. 1+ bilateral lower extremity edema. NEUROLOGICAL: Awake and alert. No obvious cranial nerve deficits. Motor grossly within normal limits. Normal speech. PSYCHIATRIC: Appropriate mood and affect; insight and judgment normal. Medications and IVs Current Medications Medications (Trade) Dose Ordered Sig/Anshul Route Start Time Stop Time Status Last Admin (NS Flush) 2 ml UNSCH PRN IV FLUSH 10/16/16 02:30 (NS Flush) 2 ml BID IV FLUSH 10/16/16 09:00 10/17/16 08:42 (Narcan Inj) 0.4 mg UNSCH PRN IV 10/16/16 02:30 (Lasix Inj) 40 mg BID@09,18 IV PUSH 10/16/16 09:00 10/17/16 08:42 (Lovenox Inj) 40 mg Q24H SQ 10/16/16 09:00 10/17/16 08:44 (Norvasc) 5 mg DAILY PO 10/16/16 09:00 10/17/16 08:41 (Pepcid) 10 mg BID PO 10/16/16 09:00 10/17/16 08:41 (Roxicodone) 5 mg Q6H PRN PO 10/16/16 10:45 10/16/16 10:53 (Nu-Colace) 2 tab BID PO 10/16/16 11:00 10/17/16 08:41 (Milk Of Magnesia Liq) 30 ml Q6H PRN PO 10/16/16 11:00 10/16/16 14:49 (Ecotrin Ec) 81 mg DAILY PO 10/16/16 13:00 10/17/16 08:41 (Coreg) 3.125 mg Q12HR PO 10/16/16 13:00 10/17/16 08:41 (Prinivil) 5 mg DAILY PO 10/16/16 13:00 10/17/16 08:44 (D50w (Vial) Inj) 50 ml UNSCH PRN IV 10/16/16 16:00 (Glucagon Inj) 1 mg UNSCH PRN OTHER 10/16/16 16:00 (Tylenol) 650 mg Q4H PRN PO 10/17/16 08:15 (Zofran Inj) 4 mg Q6H PRN IV 10/17/16 08:15 (Tums Chew) 1,000 mg TID PRN CHEW 10/17/16 08:15 (Bactroban Nasal 2% Oint) 1 applic BID EACH NARE 10/17/16 09:00 10/24/16 08:59 A/P Problem List: (1) CHF (congestive heart failure) ICD Code: I50.9 Status: Acute (2) Anasarca ICD Code: R60.1 Status: Acute (3) Pleural effusion ICD Code: J90 Status: Acute (4) OLGA (acute kidney injury) ICD Code: N17.9 Status: Acute Assessment and Plan Mr. Triplett is a 65 year-old male with a history of type 2 diabetes mellitus, hypertension, TIA, and severe shellfish allergy requiring intubation who presented to the emergency room on 10/16/2016 complaining of leg swelling, abdominal distention, mild abdominal cramping, and diminished bowel output. Acute on Chronic Systolic CHF Exacerbation with Anasarca, Pleural Effusion, with NSVT: Reviewed labs, BNP elevated at 341. Reviewed imaging, CXR with no acute findings, cardiomegaly; CT abd/pelvis shows small bilateral pleural effusions with minimal anasarca; no acute intraabdominal findings. - 2-D echocardiogram 10/16 showed EF 15%, hypokinesis, Mild MR, mild TR - ACS ruled out with negative serial cardiac enzymes and EKG without acute ischemic changes, troponins 0.04 --> 0.06 --> 0.04, likely secondary to CHF - Given Lasix 40 mg IV bid - Monitored on telemetry, patient did have 12 beat run of NSVT - Monitor Strict I and Os, patient diuresed well - Heart healthy diet - Consulted cardiology, patient sees Dr. Neely, seen by Dr. Laurent, medications adjusted, started on Coreg, Lisinopril, Aspirin - Dr. Laurent arranged LifeVest, placed prior to discharge, cleared for d/c by cardiology Acute kidney injury - BUN 17, creatinine 1.39, estimated GFR 62 - significantly reduced renal function compared to prior labs - Repeat BMP shows improvement with Cr 1.24 - Avoid nephrotoxins Poorly controlled hypertension - admitting blood pressure 183/92, recheck 157/78 - continued home Amlodipine - also started on Coreg and Lisinopril as above - BP much improved Severe Constipation: patient with no BM x1week prior to arrival. Abdominal CT with no acute findings. -Given Nu-Colace, Milk of Mag. -Had 2 BMs overnight and today. Resolved. -Discussed starting Miralax daily to prevent constipation -Also discussed patient having outpatient screening colonoscopy, he says his PCP Dr. Brandt has referred him to GI however he has not made it to the appt yet Sleep Apnea: chronic, patient reports missing part of his CPAP equipment for 8months now, follows with Dr. Yo -strongly encouraged f/up with Dr. Yo [facility] upon discharge to obtain his equipment -also counseled on importance of adherence to CPAP especially with diagnosis of CHF and risk for sudden cardiac ; patient verbalized understanding DVT prophylaxis - Lovenox 40 mg subq q24 hours Discharge Planning Discharge patient to home Condition on discharge: Improved Heart Healthy/Diabetic Diet as tolerated Ad Jessica activity Rx written: Lisinopril, Coreg, Aspirin, Lasix, KCl Follow-up with primary care physician Dr. Brandt, producer Dr. Neely, technical sourcing recruiter Dr. Yo Problem Qualifiers (1) CHF (congestive heart failure): Qualified Code: I50.9 - Congestive heart failure, unspecified congestive heart failure chronicity, unspecified congestive heart failure type Yenny Rausch PA-C October 17, 2016 2:26 pm
[2016-10-17 14:31] LABS: HEMATOCRIT 45.8 % (39.0-51.0); MEAN CELL VOLUME 90.1 FL (80.0-100.0); MEAN CORPUSCULAR HEMOGLOBIN 28.4 PG (27.0-34.0); MEAN CORPUSCULAR HGB CONC 31.5 % (32.0-36.0); PLATELET COUNT 187 TH/MM3 (150-450); RED BLOOD COUNT 5.09 MIL/MM3 (4.50-5.90); RED CELL DISTRIBUTION WIDTH 14.1 % (11.6-17.2); WHITE BLOOD COUNT 10.4 TH/MM3 (4.0-11.0)
[2016-10-17 14:35] LABS: HEMO FLAGS AUTO DIFF
[2016-10-17] MEDS ORDERED: POTA-243 PO (14:38)
[2016-10-17 14:46] LABS: BICARBONATE 36.8 MEQ/L (21.0-32.0); POTASSIUM 3.9 MEQ/L (3.5-5.1)
[2016-10-17 14:48] LABS: HDL CHOLESTEROL 36.5 MG/DL (40.0-60.0)
[2016-10-17 15:14] LABS: EOSINOPHILS 3 % (0-4); NEUTROPHIL # MANUAL DIFF 5.2 TH/MM3 (1.8-7.7); POLYS (SEG NEUTROPHILS) 50 % (16-70); WBC DIFF SAMPLE 100
[2016-10-17 15:15] LABS: PLATELET ESTIMATE SMEAR NORMAL (NORMAL); PLATELET MORPHOLOGY NORMAL (NORMAL); SCAN/DIFF FINAL DIFF MANUAL
== END 2016-10-17 15:22 | disposition home or self-care (01) ==
LOC: NEPE 17:59 → NEDA 10-16 02:23 → NEPGCP 10-16 06:00
PROVIDERS: ADMIT Internal Medicine; ATTEND Internal Medicine
DX: I11.0 Hypertensive heart disease with heart failure (principal); I50.23 Acute on chronic systolic (congestive) heart failure; I25.10 Atherosclerotic heart disease of native coronary artery without angina pectoris; E11.9 Type 2 diabetes mellitus without complications; I25.2 Old myocardial infarction; N17.9 Acute kidney failure, unspecified; K59.00 Constipation, unspecified; J44.9 Chronic obstructive pulmonary disease, unspecified; Z91.013 Allergy to seafood; E66.9 Obesity, unspecified; Z68.39 Body mass index [BMI] 39.0-39.9, adult; R80.9 Proteinuria, unspecified; Z86.73 Personal history of transient ischemic attack (TIA), and cerebral infarction without residual deficits; G47.30 Sleep apnea, unspecified; Z79.84 Long term (current) use of oral hypoglycemic drugs
CPT/HCPCS: 71010; 74176; 80048; 80053; 80061; 81001; 82550; 82948; 83036; 83690; 83735; 83880; 84484; 85007; 85025; 85027; 87641; 93005; 93306; 96374; 99285; G0378; J1650; J1815; J1940